=== PATIENT | male | born 1985 | race Caucasian/White ===

== ENCOUNTER 2019-08-08 10:55 | Emergency (ER) | payer SELFPAY ==
[2019-08-08] MEDS ORDERED: ONDANSETRON HCL INJ/PF 4 MG/2 ML SDV IV ONE (11:02)
[2019-08-08] MEDS ORDERED: KETOROLAC TROMETHAMINE INJ/PF 30 MG/1 ML SDV IV ONE (11:02)
[2019-08-08] MEDS ORDERED: NORMAL SALINE 1000 ML 1,000 ML IV ONE (11:03)
--- NOTE | 2019-08-08 11:04 | ER Document Report ---
ED Medical Screen (RME) - General Chief Complaint: Fall Injury Stated Complaint: FALL/BACK PAIN Time Seen by Provider: 08/08/19 11:01 Mode of Arrival: Ambulatory Information source: Patient Notes: Otherwise healthy 34-year-old male presenting to the emergency department with acute onset right flank pain. Patient reports history of kidney stones but states this feels very different. The pain began suddenly this morning after he urinated. He states he cannot urinate anymore although he feels he needs to. Patient is tearful and diaphoretic in triage. He did fall 3 days ago landing onto his tailbone although that is likely unrelated as he did not have any pain until this morning. I have greeted and performed a rapid initial assessment of this patient. A comprehensive ED assessment and evaluation of the patient, analysis of test results and completion of the medical decision making process will be conducted by additional ED providers. I have specifically instructed the patient or family members with the patient to immediately return to any nursing staff should anything change in the patient's condition or with their chief complaint. Physical Exam - Vital signs Vitals: Temp Pulse Resp BP Pulse Ox 98.0 F 71 16 159/92 H 96 08/08/19 10:59 08/08/19 10:59 08/08/19 10:59 08/08/19 10:59 08/08/19 10:59 Course - Vital Signs Vital signs: Temp Pulse Resp BP Pulse Ox 98.0 F 71 16 159/92 H 96 08/08/19 10:59 08/08/19 10:59 08/08/19 10:59 08/08/19 10:59 08/08/19 10:59
[2019-08-08] MEDS ORDERED: MORPHINE SULFATE 10 MG/ML INJ IV ONE (11:05)
--- NOTE | 2019-08-08 11:19 | ER Document Report ---
ED General Pain - General Chief Complaint: Back Pain Stated Complaint: FALL/BACK PAIN Time Seen by Provider: 08/08/19 11:01 Primary Care Provider: [facility] [Provider Group] - Follow up as needed Mode of Arrival: Ambulatory Notes: HPI: 34-year-old male with a past medical history of L4 sciatica as well as a kidney stone who presents today with some right flank pain. Patient states 2 days ago he slipped on a step and did land on his back. He states he did not have pain until the next day when he went to urinate. He states it is right- sided and sharp. Is intermittent. No radiation to the abdomen. Nausea and vomiting x1. No dysuria but states some hesitancy. No diarrhea or testicular pain or swelling ROS: See HPI All other review of systems reviewed and otherwise negative Reviewed vital signs and nursing note as charted by RN. PHYSICAL EXAM: CONSTITUTIONAL: Alert and oriented and responds appropriately to questions. Patient appears to be in distress HEAD: Normocephalic; atraumatic EYES: PERRL; Conjunctivae clear, sclerae non-icteric CARD: Regular rate and rhythm; no murmurs; symmetric distal pulses RESP: Normal chest excursion without splinting or tachypnea; breath sounds clear and equal bilaterally; no wheezes, no rhonchi, no rales ABD/GI: Normal bowel sounds; non-distended; soft, non-tender; no palpable organomegaly or masses BACK: The back appears normal and is non-tender to palpation along the entire midline spine with no bruising or step-offs appreciated. Patient does have some mild paraspinal muscular tenderness to the lower lumbar region EXT: Normal ROM in all joints; non-tender to palpation; no edema SKIN: No acute lesions noted NEURO: CN 2-12 intact; 5/5 bilateral upper and lower extremity strength with sensation intact to light touch PSYCH: The patient's mood and manner are appropriate. Grooming and personal hyg iene are appropriate. - Related Data Allergies/Adverse Reactions: Penicillins Allergy (Unknown, Verified 08/08/19 11:15) Home Medications: Omperazole Past Medical History - General Information source: Patient - Social History Smoking Status: Former Smoker Chew tobacco use (# tins/day): No Frequency of alcohol use: Social Drug Abuse: None Family History: Reviewed & Not Pertinent Patient has homicidal ideation: No Physical Exam - Vital signs Vitals: Temp Pulse Resp BP Pulse Ox 98.0 F 71 16 159/92 H 96 08/08/19 10:59 08/08/19 10:59 08/08/19 10:59 08/08/19 10:59 08/08/19 10:59 Course - Re-evaluation Re-evalutation: 08/08/19 11:18 Given the history and physical we will obtain basic labs and provide pain medications. I will order a renal colic CT scan to evaluate for the possibility of kidney stones or bony abnormalities. Patient has no signs or symptoms of discitis, epidural abscess, spinal cord compression, or osteomyelitis. 08/08/19 12:[address] scan as recorded. Distal kidney stone. White count is pending but the urine analysis shows no obvious infection. 08/08/19 12:20 Labs otherwise as recorded. Patient's pain is improved. I will discharge the patient with strict return precautions as well as urology follow-up and a course of pain medications. - Vital Signs Vital signs: Temp Pulse Resp BP Pulse Ox 98 F 71 16 159/92 H 96 08/08/19 11:01 08/08/19 10:59 08/08/19 10:59 08/08/19 10:59 08/08/19 10:59 - Laboratory Result Diagrams: 08/08/19 11:25 08/08/19 11:25 Laboratory results interpreted by me: 08/08/19 08/08/19 08/08/19 11:10 11:25 11:25 WBC 12.7 H Lymph % (Auto) 11.0 L Absolute Neuts (auto) 10.5 H Seg Neutrophils % 82.7 H Glucose 139 H ALT 104 H Albumin 5.1 H Urine Protein 30 H Urine Blood MODERATE H Urine Ascorbic Acid 40 H Discharge - Discharge Clinical Impression: Kidney stone on right side Condition: Good Disposition: HOME, SELF-CARE Additional Instructions: Come back immediately for any increased pain, change in location or quality of pain, fevers or vomiting, inability urinate, or any other acute problems. Please take 600 mg of ibuprofen every 6 hours for the next 5 days as needed for pain as well as the pain medications we have prescribed you. Please follow-up with urology as provided. Prescriptions: Tamsulosin HCl [Flomax 0.4 mg Cap.sr] 0.4 mg PO DAILY #7 cap.sr.24h Hydrocodone/Acetaminophen [Marilla 5-325 mg Tablet] 1 tab PO Q8 #10 tablet Hydrocodone/Acetaminophen [Marilla 5-325 mg Tablet] 1 tab PO Q8 #10 tablet Referrals: [facility] [Provider Group] - Follow up as needed
[2019-08-08 11:55] LABS: ABSOLUTE BASOPHILS # (AUTO) 0.1 10^3/uL (0.0-0.2); ABSOLUTE EOSINOPHILS # (AUTO) 0.1 10^3/uL (0.0-0.6); ABSOLUTE LYMPHOCYTES (AUTO) 1.4 10^3/uL (0.5-4.7); ABSOLUTE MONOCYTES (AUTO) 0.6 10^3/uL (0.1-1.4); ABSOLUTE NEUT (AUTO) 10.5 10^3/uL (1.7-8.2); BASOPHILS % (AUTO) 0.5 % (0-2); EOSINOPHILS % (AUTO) 0.9 % (0-6); HEMATOCRIT 45.3 % (37.9-51.0); HEMOGLOBIN 15.6 g/dL (13.5-17.0); MEAN CORPUSCULAR HEMOGLOBIN 29.8 pg (27.0-33.4); MEAN CORPUSCULAR HGB CONC 34.5 g/dL (32.0-36.0); MEAN CORPUSCULAR VOLUME 87 fl (80-97); MONOCYTES % (AUTO) 4.9 % (3-13); PLATELET COUNT 261 10^3/uL (150-450); RED BLOOD COUNT 5.23 10^6/uL (4.35-5.55); RED CELL DISTRIBUTION WIDTH 13.4 % (11.5-14.0); SEGMENTED NEUTROPHILS % (AUTO) 82.7 % (42-78); TOTAL CELLS COUNTED % (AUTO) 100 %; WHITE BLOOD COUNT 12.7 10^3/uL (4.0-10.5)
[2019-08-08 11:57] LABS: ALBUMIN 5.1 g/dL (3.5-5.0); ALKALINE PHOSPHATASE 82 U/L (38-126); ANION GAP 8 (5-19); ASPARTATE AMINO TRANSFERASE 55 U/L (17-59); BILIRUBIN,TOTAL 0.6 mg/dL (0.2-1.3); BLOOD UREA NITROGEN 19 mg/dL (7-20); CALCIUM 9.6 mg/dL (8.4-10.2); CARBON DIOXIDE 26 mmol/L (22-30); CHLORIDE 106 mmol/L (98-107); GLUCOSE 139 mg/dL (75-110); POTASSIUM 4.5 mmol/L (3.6-5.0); TOTAL PROTEIN 7.8 g/dL (6.3-8.2)
[2019-08-08 12:03] LABS: APPEARANCE,URINE CLEAR; BILIRUBIN,URINE NEGATIVE (NEGATIVE); COLOR,URINE YELLOW; GLUCOSE, URINE NEGATIVE (NEGATIVE); KETONES,URINE NEGATIVE (NEGATIVE); LEUKOCYTE ESTERASE,URINE NEGATIVE (NEGATIVE); NITRITE,URINE NEGATIVE (NEGATIVE); PROTEIN,URINE 30 mg/dL (NEGATIVE); URINE SPECIFIC GRAVITY 1.029; UROBILINOGEN,URINE NEGATIVE mg/dL (<2.0)
--- NOTE | 2019-08-08 12:11 | RADIOLOGY REPORT (SQ) ---
EXAM DESCRIPTION: CT ABD/PELVIS NO ORAL OR IV IMAGES COMPLETED DATE/TIME: 08/08/2019 10:42 am REASON FOR STUDY: 16; flank pain right COMPARISON: None. TECHNIQUE: CT scan of the abdomen and pelvis performed without intravenous or oral contrast. Images reviewed with lung, soft tissue, and bone windows. Reconstructed coronal and sagittal MPR images revi ewed. All images stored on PACS. All CT scanners at this facility use dose modulation, iterative reconstruction, and/or weight based d osing when appropriate to reduce radiation dose to as low as reasonably achievable (ALARA). [facility]: Dose Right [facility]: CareDose [facility]: Dose Right [facility]: Teradose 4D [facility]: Smart Kiwi Crate RADIATION DOSE: CT Rad equipment meets quality standard of care and radiation dose reduction techniq ues were employed. CTDIvol: 8.2 mGy. DLP: 454 mGy-cm.mGy. LIMITATIONS: None. FINDINGS: LOWER CHEST: No significant findings. No nodules or infiltrates. NON-CONTRASTED LIVER, SPLEEN, ADRENALS: Liver has normal size and contour. There is severe diffuse h epatic steatosis. Focal fatty sparing at the gallbladder fossa. Evaluation of the parenchyma is albert ited without IV contrast. Spleen has normal size. No adrenal mass. PANCREAS: No masses. No peripancreatic inflammatory changes. GALLBLADDER: No identified stones by CT criteria. No inflammatory changes to suggest cholecystitis. RIGHT KIDNEY AND URETER: No suspicious masses. Assessment limited by lack of IV contrast. There is a 3 mm calculus at the right ureteral vesicle junction or just inside the urinary bladder. Additiona l punctate nonobstructing right superior pole renal calculus. Mild right hydronephrosis and hydrour eter. No perinephric fluid. LEFT KIDNEY AND URETER: No suspicious masses. Assessment limited by lack of IV contrast. Punctate n onobstructing midpole calculus. No obstructing renal or ureteral calculus. No hydronephrosis or hy droureter. AORTA AND RETROPERITONEUM: No aneurysm. No retroperitoneal masses or adenopathy. BOWEL AND PERITONEAL CAVITY: No obvious masses or inflammatory changes. No free fluid. APPENDIX: Normal. PELVIS, BLADDER, AND ABDOMINAL WALL:No abnormal masses. No free fluid. Bladder normal. BONES: No significant findings. OTHER: No other significant finding. IMPRESSION: 1. There is a 3 mm calculus at the right ureterovesical junction or just inside the right urinary pastor dder. Mild right hydronephrosis and hydroureter. 2. Nonobstructing bilateral punctate renal calculi. 3. Severe hepatic steatosis. COMMENT: Quality ID # [id number]: Final reports with documentation of one or more dose reduction techniques (e.g., Automated exposure control, adjustment of the mA and/or kV according to patient size, use of iterative reconstruction technique) TECHNICAL DOCUMENTATION: JOB ID: [id number] 2010 [employer]- All Rights Reserved Reading location - IP/workstation name: [email or web address]
[2019-08-08] MEDS ORDERED: TAMSULOSIN HCL 0.4 MG CAP.SR.24H PO ONE (12:20)
[2019-08-08 13:09] VITALS: BP 137/76
== END 2019-08-08 13:10 | disposition home or self-care (01) ==
LOC: ER 10:55
DX: N13.2 Hydronephrosis with renal and ureteral calculous obstruction (principal); Z79.899 Other long term (current) drug therapy; Z87.891 Personal history of nicotine dependence; Z88.0 Allergy status to penicillin
CPT/HCPCS: 99284; 96361; 96374; 96375; 36415; 85025; 80053; 81001; 74176; J1885; J2270; J2405; J7030